=== PATIENT | female | born 1970 | race African-American/Black ===

== ENCOUNTER 2024-10-29 19:43 | Emergency (ER) | payer BC, SELFPAY ==
[2024-10-29 19:58] VITALS: BP 180/106
--- NOTE | 2024-10-29 20:38 | ED.GENMED ---
History of Present Illness
General
Chief Complaint: Headache
Time Seen by Provider: 10/29/24 20:17
History of Present Illness
History of Present Illness:
Patient is a 54-year-old woman with history of hypertension presenting to the emergency with a headache. Patient states he developed a headache yesterday to the right side. It resolved on any intervention. Today she developed a headache again
around 3 PM on the right side. It worsened throughout the day. It is a pounding sensation. No nausea or vomiting. No photophobia or phonophobia. She does not get headaches. This is not the worst headache of her life. No traumatic events. No
numbness tingling. No weakness. She does state that she is under a lot of stress.
Phy Exam
Physical Exam
Physical Exam:
GENERAL: in no acute distress
HEENT: normocephalic, extraocular movements intact, moist oral mucosa
NECK: normal inspection
RESPIRATORY: no respiratory distress, clear to auscultation bilaterally
CARDIOVASCULAR: regular rate and rhythm
ABDOMEN/: soft, non-distended, non-tender to palpation, no rebound or guarding
EXTREMITIES: non-tender, no edema/swelling
NEUROLOGIC: alert and oriented x 3, cranial nerves II-XII intact, right upper extremity strength 5/5, left upper extremity strength 5/5, right lower extremity strength 5/5, left lower extremity strength 5/5, normal sensation to light touch, normal
[id number] and [id number], gait not tested formally
SKIN: warm
Course
Orders/Labs/Results
Orders:
Orders
10/29/24 20:03
EKG [Electrocardiogram (*1)] Urgent
Reason for Study: Hypertension, Benign
EKG- Treatment ONCE
10/29/24 20:36
CT Head W/o Iv Contrast Urgent
Comment:
Reason For Exam: headachhe
0.9% Sodium Chloride 1000 ml [Nss] 1,000 ml IV BOLUS
Diphenhydramine [Benadryl] 12.5 mg IV NOW STA
Ketorolac [Toradol] 15 mg IV NOW STA
Metoclopramide [Reglan] 10 mg IV NOW STA
10/29/24 21:04
Complete Blood Count/With Diff Urgent
Comprehensive Metabolic Panel Urgent
Abnormal Lab Results
10/29/24
21:04
WBC 13.4 H 10^3/uL
(4.8-10.8)
Absolute Neuts (auto) 9.3 H 10^3/uL
(1.4-6.5)
Absolute Monos (auto) 0.9 H 10^3/uL
(0.1-0.6)
Chloride 111 H mmol/L
(98-107)
Carbon Dioxide 21 L mmol/L
(22-30)
Glucose 132 H mg/dl
(70-99)
Total Protein 8.7 H g/dl
(6.3-8.2)
10/29/24 21:04
10/29/24 21:04
Vital Signs
Initial and Last Documented VS:
Initial Vital Signs
Temp Pulse Resp BP Pulse Ox
98.5 F 66 20 180/106 99
10/29/24 19:58 10/29/24 19:58 10/29/24 19:58 10/29/24 19:58 10/29/24 19:58
Last Documented Vital Signs
Temp Pulse Resp BP Pulse Ox
98.5 F 66 20 141/98 98
10/29/24 19:58 10/29/24 19:58 10/29/24 19:58 10/29/24 21:00 10/29/24 21:09
MDM/Problems Addressed
Differential Diagnosis Includes:
Patient is a 54-year-old woman presenting to the emergency department with a headache. Likely migraine versus tension type headache. No headache red flags. Neuroexam without any deficits. Full range of motion of the neck. Less likely to be
subarachnoid hemorrhage given history. History exam not consistent with meningitis or arteritis or glaucoma. Given patient's age and that this is a new onset headache will obtain CT scan. Will give migraine cocktail.
*Critical Care Note
Total Time (30-74mins, 75-104mins- exclusive of procedures): Not Applicable
Update Note
Update Note:
On reevaluation patient's headache has improved. CT scan is negative for any acute abnormality. It does show a white count of 13.4. Patient denies any recent illnesses or steroid use. She does state that she is been under a lot of stress lately.
Patient does not have any source of infection such as rash or urinary symptoms or meningeal sign. Patient advised to follow-up with her PCP to have repeat WBC to make sure it is downtrending. Patient and patient's daughter at bedside comfortable
with discharge. Patient remained well-appearing during emergency department stay. Will discharge at this time.
ED Attending Note
-
Portions of this chart may have been created with voice recognition software.� Occasional wrong word or��sound alike� substitutions may have occurred due to the inherent limitations of voice recognition software.
Discharge Plan
Departure
Patient Disposition: Home (Routine Discharge)
Date of Disposition: 10/29/24
Time of Disposition: 22:48
Patient with high blood pressure during this ER visit?: Yes
Discharge Problem:
Headache
Instructions: Headache, Adult (DC)
Referrals:
Keren Hylton NP [Family Provider]
Activity Restrictions/Additional Instructions:
You were seen in the Emergency Department today for headache. While you were here we performed blood work and CT scan, which was reassuring.
We would like for you to follow up with your primary care physician for further evaluation. If you experience fever, worsening of your symptoms, or develop any other new or concerning symptoms, please return to the Emergency Department immediately.
Please see the attached sheet for additional information.
Interventions
Interventions:
*Risk Screen - Suicide Last Done: 10/29/24 19:58
*General Assessment Last Done: 10/29/24 19:58
*Neglect/Abuse Screening Last Done: 10/29/24 19:58
*ED- Fall Risk Assessment Last Done: 10/29/24 21:24
*ED COVID-19 Vaccine History Last Done: 10/29/24 21:24
ED- Cardiac Assessment Last Done: 10/29/24 21:22
ED- Neurological Assessment Last Done: 10/29/24 21:22
ED- Pulmonary Assessment Last Done: 10/29/24 21:22
Discharge Date and Time
Print Language: [place]
[2024-10-29 21:00] VITALS: BP 141/98
[2024-10-29] MEDS: BENADRYL 12.5 MG IV (21:05)
[2024-10-29] MEDS: NSS 1000 IV (21:05)
[2024-10-29] MEDS: REGLAN 10 MG IV (21:06)
[2024-10-29] MEDS: TORADOL 15 MG IV (21:06)
[2024-10-29 21:19] LABS: % Basophils 0.3 % (0-2); % Eosinophils 0.4 % (0-6); % Immature Granulocytes 0.3 % (0-0.5); % Lymphocytes 23.4 % (20.5-51.1); % Monocytes 6.4 % (1.7-9.3); % Neutrophils 69.2 % (42.2-75.2); Absolute Eosinophils 0.1 10^3/uL (0-0.7); Absolute Lymphocytes 3.1 10^3/uL (1.2-3.4); Absolute Monocytes 0.9 10^3/uL (0.1-0.6); Absolute Neutrophils 9.3 10^3/uL (1.4-6.5); Hematocrit 43.6 % (37.0-47.0); Hemoglobin 14.7 g/dL (12.0-16.0); Mean Corp Hgb Conc. 33.7 g/dL (33.0-37.0); Mean Corpuscular Hgb 28.4 pg (27.0-31.0); Mean Corpuscular Volume 84.2 fL (81.0-99.0); Mean Platelet Volume 9.6 fL (7.4-10.4); Nucleated Red Blood Cells % 0 %; Platelet Count 239 10^3/uL (130-400); Red Blood Cell Count 5.18 10^6/uL (4.20-5.40); Red Cell Dist. Width 14.1 % (11.5-14.5); White Blood Cell Count 13.4 10^3/uL (4.8-10.8)
[2024-10-29 21:31] LABS: ALT (SGPT) 20 U/L (0-35); AST (SGOT) 20 U/L (14-36); Albumin 4.7 g/dl (3.5-5.0); Alkaline Phosphatase 87 U/L (38-126); Blood Urea Nitrogen 14 mg/dl (7-17); Calcium 10.2 mg/dl (8.4-10.2); Carbon Dioxide 21 mmol/L (22-30); Chloride 111 mmol/L (98-107); Glucose 132 mg/dl (70-99); Potassium 3.5 mmol/L (3.5-5.1); Sodium 144 mmol/L (135-145); Total Bilirubin 0.4 mg/dl (0.2-1.3); Total Protein 8.7 g/dl (6.3-8.2); eGFR > 60.00
[2024-10-29 22:58] VITALS: BP 148/91
== END 2024-10-29 23:00 | disposition home or self-care (01) ==
LOC: EMR 19:43
PROVIDERS: EMERGENCY PHYSICIAN Student in an Organized Health Care Education/Training Program; FAMILY PHYSICIAN Nurse Practitioner Adult Health
DX: R51.9 Headache, unspecified (principal); I10 Essential (primary) hypertension; Z73.3 Stress, not elsewhere classified
CPT/HCPCS: 99284; 96374; 96375 ×2; 96361; 70450; 80053; 85025; 93005